=== PATIENT | female | born 1965 | race Caucasian/White ===

== ENCOUNTER 2016-06-10 16:24 | Observation (INO) | payer MEDICAID ==
[2016-06-10] MEDS ORDERED: ACETAMINOPHEN 325 MG TABLET PO PRN (17:43)
[2016-06-10] MEDS ORDERED: VANCOMYCIN HCL 0 MG in DEXTROSE 5%-WATER 250 ML IV NR (18:00)
--- NOTE | 2016-06-10 18:03 | PDOC H&P ---
History of Present Illness Admission Date/PCP: 06/10/16 16:24 TOM AGUIRRE DO Patient complains of: Redness and swelling of the abdominal wall. History of Present Illness: BRANDON GAGNON is a 50 year old female who presents with cellulitis of the anterior abdominal wall. Patient has a very complex past medical history for full details please see the discharge summary dated 11/06/2015 done by Erick BEAVERS. The patient today however presents with a four-day history of redness and swelling and erythema on her anterior wall. Patient has had problems with chronic cellulitis of her anterior abdominal wall and there is been some concern that this may be self-inflicted with foreign bodies present. The patient relates to me that over the last 4 days she's had worsening purulent drainage. She denies having any fevers or chills however. When asked about this she says that it's secondary to being infected with black mold that is working its way to from the inside of her to the surface. Patient reports that she has appointment on Monday of next week with a plastic surgeon at [facility] Dr. Mariam Slaughter for a procedure to remove the infected areas as well as to remove all of the mold from inside her skin. Patient denies having any fevers or chills. She denies any self-inflicted wounds. Patient denies any recent trauma but has had previous traumas to her abdominal wall that she states started all of this cycle. Past Medical History Cardiac Medical History: Reports: DVT Denies: Coronary Artery Disease, Hypertension Pulmonary Medical History: Denies: Asthma, Bronchitis, Chronic Obstructive Pulmonary Disease (COPD), Pneumonia Neurological Medical History: Reports: Seizures - childhood seizures GI Medical History: Reports: Gastroesophageal Reflux Disease Musculoskeltal Medical History: Reports: Arthritis Psychiatric Medical History: Reports: Post Traumatic Stress Disorder Denies: Depression Hematology: Denies: Anemia Infectious Medical History: Reports: Clostridium Difficile Past Surgical History Past Surgical History: Reports: Cholecystectomy, Hysterectomy, Orthopedic Surgery - Right knee left hip and back. Social History Information Source: Patient Lives with: Alone Smoking Status: Never Smoker Frequency of Alcohol Use: None Hx Recreational Drug Use: No Drugs: None Hx Prescription Drug Abuse: No - Advance Directive Resuscitation Status: the patient previously has been a DO NOT RESUSCITATE of the she's not certain at this time Family History Family History: Arthritis, CAD, CVA, DM, Hyperlipidemia, Hypertension, Malignancy, Thyroid Disfunction Parental Family History Reviewed: Yes Children Family History Reviewed: No Sibling(s) Family History Reviewed.: No Medication/Allergy Home Medications: Fentanyl [Duragesic 12 Mcg/Hr Transdermal Patch] 1 patch TD Q3DAYS 06/10/16 Gabapentin 500 mg PO Q12 06/10/16 Hydrocodone/Acetaminophen [Hydrocodon-Acetamin 7.5-325/15] 15 ml PO Q6 PRN 06/10 Allergies/Adverse Reactions: sulfamethoxazole [From Bactrim] Allergy (Severe, Verified 12/07/15 16:55) Respiratory distress trimethoprim [From Bactrim] Allergy (Severe, Verified 12/07/15 16:55) Respiratory distress clindamycin [Clindamycin] Allergy (Unknown, Verified 12/07/15 16:55) Respiratory distress doxycycline [Doxycycline] Allergy (Unknown, Verified 12/07/15 16:55) Respiratory distress Penicillins Allergy (Unknown, Verified 12/07/15 16:55) Respiratory distress Coconut * [Coconut] Allergy (Verified 12/07/15 16:55) Hives Review of Systems Constitutional: PRESENT: chills. ABSENT: fever(s), weakness, weight gain, weight loss Eyes: ABSENT: visual disturbances Ears: ABSENT: hearing changes Cardiovascular: ABSENT: chest pain, dyspnea on exertion, edema, orthropnea, palpitations Respiratory: ABSENT: cough, hemoptysis Gastrointestinal: ABSENT: abdominal pain, constipation, diarrhea, hematemesis, hematochezia, nausea, vomiting Musculoskeletal: ABSENT: joint swelling Integumentary: PRESENT: as per HPI Neurological: ABSENT: abnormal gait, abnormal speech, confusion, dizziness, focal weakness, syncope Psychiatric: PRESENT: other - History posttraumatic stress disorder Hematologic/Lymphatic: ABSENT: easy bleeding, easy bruising Physical Exam Vital Signs: Temp Pulse Resp BP Pulse Ox 99.7 F 101 H 148/79 H 96 06/10/16 16:54 06/10/16 16:54 06/10/16 16:54 06/10/16 16:54 General appearance: PRESENT: no acute distress Head exam: PRESENT: atraumatic, normocephalic Eye exam: PRESENT: conjunctiva pink, EOMI, PERRLA. ABSENT: scleral icterus Ear exam: PRESENT: normal external ear exam Mouth exam: PRESENT: moist, tongue midline Neck exam: ABSENT: carotid bruit, JVD, lymphadenopathy, thyromegaly Respiratory exam: PRESENT: clear to auscultation jojo. ABSENT: rales, rhonchi, wheezes Cardiovascular exam: PRESENT: RRR. ABSENT: diastolic murmur, rubs, systolic murmur GI/Abdominal exam: PRESENT: normal bowel sounds, soft. ABSENT: distended, guarding, mass, organolmegaly, rebound, tenderness Rectal exam: PRESENT: deferred Extremities exam: ABSENT: calf tenderness, clubbing, pedal edema Neurological exam: PRESENT: alert, awake, oriented to person, oriented to place , oriented to time, oriented to situation Psychiatric exam: PRESENT: appropriate affect Skin exam: PRESENT: other - Area of erythema and some shallow ulcers in the pannus on the anterior abdomen. No obvious purulent drainage the time of my exam. Assessment & Plan - Diagnosis (1) Abdominal wall cellulitis Is this a current diagnosis for this admission?: YesPlan: Patient has superficial cellulitis with some small shallow ulcers on her pannus. The patient reports to me that this is from black mold that is deep within her soft tissue and is migrating to the surface. The patient does not have any obvious fungal elements on exam. I suspect that this is just a simple cellulitis. There has been the past concerned that she may be self-limiting these wounds and all of her issues are addressed in detail on the discharge summary dated 11/06/2015 done by Erick Bauer [employer] PRODUCTION ASSISTANT. We will treat with vancomycin and check blood cultures. Patient reports that she has to get on a bus at 4 AM on Monday morning so she can go to [place] to see Dr. Mariam Slaughter of plastic surgery for surgical repair of these ulcers. The patient reportedly has chronic pain and is on a fentanyl patch which she has present on her body as well as hydrocodone. We will continue with her outpatient regiment pain medication but we will give no IV pain medications and we will give no higher doses than what she is routinely on. (2) History of DVT (deep vein thrombosis) Is this a current diagnosis for this admission?: YesPlan: She has a history of DVT in her left neck associated with a central line. This was greater than a year ago and she is not currently on anticoagulation. (3) DNR (do not resuscitate) Is this a current diagnosis for this admission?: YesPlan: The patient in the past has been a DO NOT RESUSCITATE. - Time Time Spent: 50 to 70 Minutes - Inpatient Certification Medical Necessity: Need for IV Antibiotics - Plan Summary Plan Summary: The patient has a complicated past medical history that has been addressed in detail on a discharge summary dated 11/06/2015 by Erick BEAVERS.
[2016-06-10] MEDS ORDERED: FENTANYL 12 MCG/HR PATCH.TD72 TD ONE (18:45)
[2016-06-10] MEDS: HYDROCOD/ACETAMIN 7.5-325 MG/15 ML ORAL SOLN UDCUP PO PRN (18:58)
[2016-06-10] MEDS ORDERED: HALOPERIDOL 5 MG TABLET PO PRN (19:07)
[2016-06-10 19:29] LABS: ANION GAP 13 (5-19); BLOOD UREA NITROGEN 9 mg/dL (7-20); CALCIUM 9.3 mg/dL (8.4-10.2); CARBON DIOXIDE 25 mmol/L (22-30); CHLORIDE 104 mmol/L (98-107); CREATININE RESULT 0.75 mg/dL (0.52-1.25); GLUCOSE 92 mg/dL (75-110); POTASSIUM 4.1 mmol/L (3.6-5.0); SODIUM 141.8 mmol/L (137-145)
[2016-06-10] MEDS ORDERED: GABAPENTIN 500 MG PO SCH (22:00)
[2016-06-10] MEDS: VANCOMYCIN HCL 2,000 MG in DEXTROSE 5%-WATER 500 ML IV SCH (22:54)
[2016-06-11] MEDS: HYDROCOD/ACETAMIN 7.5-325 MG/15 ML ORAL SOLN UDCUP PO PRN ×5 (00:36→23:01)
[2016-06-11] MEDS ORDERED: NORMAL SALINE 10 ML SDV (AFTER EACH USE) IV PRN (02:18)
[2016-06-11 07:41] LABS: ABSOLUTE BASOPHILS # (AUTO) 0.2 10^3/uL (0.0-0.2); ABSOLUTE EOSINOPHILS # (AUTO) 0.3 10^3/uL (0.0-0.6); ABSOLUTE LYMPHOCYTES (AUTO) 2.2 10^3/uL (0.5-4.7); ABSOLUTE MONOCYTES (AUTO) 0.7 10^3/uL (0.1-1.4); ABSOLUTE NEUT (AUTO) 5.6 10^3/uL (1.7-8.2); BASOPHILS % (AUTO) 1.7 % (0-2); EOSINOPHILS % (AUTO) 2.9 % (0-6); HEMATOCRIT 38.8 % (36.0-47.0); HEMOGLOBIN 12.9 g/dL (12.0-15.5); HGB HCT DIFFERENCE -0.1; MEAN CORPUSCULAR HGB CONC 33.1 g/dL (32.0-36.0); MEAN CORPUSCULAR VOLUME 82 fl (80-97); MONOCYTES % (AUTO) 8.2 % (3-13); RED BLOOD COUNT 4.76 10^6/uL (3.72-5.28); SEGMENTED NEUTROPHILS % (AUTO) 62.2 % (42-78)
[2016-06-11] MEDS: VANCOMYCIN HCL 2,000 MG in DEXTROSE 5%-WATER 500 ML IV SCH ×2 (09:48→21:05)
[2016-06-11] MEDS: NORMAL SALINE 10 ML SDV (SCHEDULED) IV SCH ×2 (12:39→21:06)
--- NOTE | 2016-06-11 16:15 | PDOC DISCHARGE SUMMARY ---
General - Admit/Disc Date/PCP Admission Date/Primary Care Provider: 06/10/16 16:24 OTM AGUIRRE, DO Discharge Date: 06/11/16 - Discharge Diagnosis (1) Abdominal wall cellulitis Is this a current diagnosis for this admission?: YesSummary: Patient was treated with vancomycin. She is discharged this evening because she reports she has to leave at 5 in the morning and report to [facility] for admission for planned procedure of repair of pannus by Dr. Mariam Slaughter of plastic surgery. The patient is aware that she needs to continue with IV vancomycin and she reports that his will be done at [facility]. (2) History of DVT (deep vein thrombosis) Is this a current diagnosis for this admission?: YesSummary: This has been greater than a year and she is not on anticoagulation at this time (3) DNR (do not resuscitate) Is this a current diagnosis for this admission?: Yes - Additional Information Resuscitation Status: the patient previously has been a DO NOT RESUSCITATE of the she's not certain at this time Discharge Diet: Regular Discharge Activity: Activity As Tolerated Home Medications: Fentanyl [Duragesic 12 Mcg/Hr Transdermal Patch] 1 patch TD Q3DAYS 06/10/16 Gabapentin 500 mg PO Q12 06/10/16 Hydrocodone/Acetaminophen [Hydrocodon-Acetamin 7.5-325/15] 15 ml PO Q6 PRN 06/10 History of Present Illness History of Present Illness: BRANDON GAGNON is a 50 year old female who presents with cellulitis of the anterior abdominal wall. Patient has a very complex past medical history for full details please see the discharge summary dated 11/06/2015 done by Erick BEAVERS. The patient today however presents with a four-day history of redness and swelling and erythema on her anterior wall. Patient has had problems with chronic cellulitis of her anterior abdominal wall and there is been some concern that this may be self-inflicted with foreign bodies present. The patient relates to me that over the last 4 days she's had worsening purulent drainage. She denies having any fevers or chills however. When asked about this she says that it's secondary to being infected with black mold that is working its way to from the inside of her to the surface. Patient reports that she has appointment on Monday of next week with a plastic surgeon at [facility] Dr. Mariam Slaughter for a procedure to remove the infected areas as well as to remove all of the mold from inside her skin. Patient denies having any fevers or chills. She denies any self-inflicted wounds. Patient denies any recent trauma but has had previous traumas to her abdominal wall that she states started all of this cycle. 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 Please see the discharge summary dictated by Erick Bauer dated 11/06/2015 for details regarding that. The patient presented with erythema of her abdominal wall as well as some shallow ulcers. Patient was started on vancomycin IV as she reports that she is allergic to any possible oral antibiotic that might treat this. The patient reports that she has to leave at 5 AM on 06/12/2016 to go to [facility]. Because of this she is discharged tonight and will follow-up tomorrow with Dr. Mariam Slaughter. She reports that she is to be admitted to the plastic surgery service Dr. Mariam Slaughter Monday morning. Patient's other medical problems remained stable during this hospitalization. Physical Exam Vital Signs: Temp Pulse Resp BP Pulse Ox 98.2 F 70 18 153/69 H 100 06/11/16 15:37 06/11/16 15:37 06/11/16 15:37 06/11/16 15:37 06/11/16 15:37 Intake & Output 06/10/16 06/11/16 06/12/16 06:59 06:59 06:59 Intake Total 480 Balance 480 Weight 127 kg 127 kg General appearance: PRESENT: no acute distress Eye exam: PRESENT: conjunctiva pink. ABSENT: scleral icterus Mouth exam: PRESENT: moist, tongue midline Neck exam: ABSENT: JVD Respiratory exam: PRESENT: clear to auscultation jojo. ABSENT: rales, rhonchi, wheezes Cardiovascular exam: PRESENT: RRR. ABSENT: diastolic murmur, rubs, systolic murmur GI/Abdominal exam: PRESENT: normal bowel sounds, soft. ABSENT: distended, guarding, mass, organolmegaly, rebound, tenderness Neurological exam: PRESENT: alert, awake, oriented to person, oriented to place , oriented to time, oriented to situation Psychiatric exam: PRESENT: appropriate affect Skin exam: PRESENT: other - Erythema on the anterior abdominal wall pannus. There is also several small areas of ulceration. Results Laboratory Results: 06/11/16 06:25 06/10/16 18:35 06/10/16 06/11/16 18:35 06:25 WBC 9.0 RBC 4.76 Hgb 12.9 Hct 38.8 MCV 82 MCH 27.0 MCHC 33.1 RDW 15.0 H Plt Count 164 Seg Neutrophils % 62.2 Lymphocytes % 25.0 Monocytes % 8.2 Eosinophils % 2.9 Basophils % 1.7 Absolute Neutrophils 5.6 Absolute Lymphocytes 2.2 Absolute Monocytes 0.7 Absolute Eosinophils 0.3 Absolute Basophils 0.2 Sodium 141.8 Potassium 4.1 Chloride 104 Carbon Dioxide 25 Anion Gap 13 BUN 9 Creatinine 0.75 Est GFR ( Amer) > 60 Est GFR (Non-Af Amer) > 60 Glucose 92 Calcium 9.3 Qualifiers PATEINT BEING DISCHARGED WITH ANY OF THE FOLLOWING DIAGNOSIS?: No Plan Discharge Plan: Patient is discharged after her evening dose of vancomycin today and she is going to [facility] school medicine tomorrow morning early. Time Spent: Less than 30 Minutes
[2016-06-11 22:02] VITALS: BP 123/79
[2016-06-13] MEDS ORDERED: FENTANYL 12 MCG/HR PATCH.TD72 TD SCH (10:00)
== END 2016-06-11 23:55 | disposition home or self-care (01) ==
LOC: 2N 16:24 → INTOOBSV 16:24
PROVIDERS: ADMIT Family Medicine; ATTEND Family Medicine
DX: L03.311 Cellulitis of abdominal wall (principal); Z66 Do not resuscitate; Z86.718 Personal history of other venous thrombosis and embolism
CPT/HCPCS: 36415 ×2; 87040; 85025; 80048; J3490 ×2; J7060 ×2; J3370 ×2; J1642; G0378; G0379

== ENCOUNTER → 2016-07-20 | Outpatient (CLI) | payer MEDICAID, MEDICARE ==
[2016-07-20 15:34] LABS: ABSOLUTE BASOPHILS # (AUTO) 0.1 10^3/uL (0.0-0.2); ABSOLUTE EOSINOPHILS # (AUTO) 0.1 10^3/uL (0.0-0.6); ABSOLUTE LYMPHOCYTES (AUTO) 1.6 10^3/uL (0.5-4.7); ABSOLUTE MONOCYTES (AUTO) 0.6 10^3/uL (0.1-1.4); ABSOLUTE NEUT (AUTO) 4.8 10^3/uL (1.7-8.2); BASOPHILS % (AUTO) 1.2 % (0-2); EOSINOPHILS % (AUTO) 1.9 % (0-6); HEMATOCRIT 39.5 % (36.0-47.0); HEMOGLOBIN 13.2 g/dL (12.0-15.5); HGB HCT DIFFERENCE 0.1; LYMPHOCYTES % (AUTO) 22.4 % (13-45); MEAN CORPUSCULAR HEMOGLOBIN 27.3 pg (27.0-33.4); MEAN CORPUSCULAR HGB CONC 33.4 g/dL (32.0-36.0); MEAN CORPUSCULAR VOLUME 82 fl (80-97); MONOCYTES % (AUTO) 8.7 % (3-13); RED BLOOD COUNT 4.84 10^6/uL (3.72-5.28); RED CELL DISTRIBUTION WIDTH 14.9 % (11.5-14.0); SEGMENTED NEUTROPHILS % (AUTO) 65.8 % (42-78); WHITE BLOOD COUNT 7.3 10^3/uL (4.0-10.5)
[2016-07-20 16:10] LABS: ERYTHROCYTE SEDIMENTATION RATE 26 mm/hr (0-20)
[2016-07-20 16:13] LABS: ALANINE AMINOTRANSFERASE 36 U/L (9-52); ALBUMIN 4.2 g/dL (3.5-5.0); ALKALINE PHOSPHATASE 107 U/L (38-126); ANION GAP 10 (5-19); ASPARTATE AMINO TRANSFERASE 28 U/L (14-36); BILIRUBIN,DIRECT 0.3 mg/dL (0.0-0.4); BILIRUBIN,TOTAL 1.2 mg/dL (0.2-1.3); BLOOD UREA NITROGEN 14 mg/dL (7-20); C-REACTIVE PROTEIN 21.6 mg/L (<10.0); CALCIUM 9.6 mg/dL (8.4-10.2); CARBON DIOXIDE 28 mmol/L (22-30); CHLORIDE 107 mmol/L (98-107); CREATINE KINASE 77 U/L (30-135); CREATININE RESULT 0.68 mg/dL (0.52-1.25); GLUCOSE 96 mg/dL (75-110); POTASSIUM 4.3 mmol/L (3.6-5.0); SODIUM 145.1 mmol/L (137-145); TOTAL PROTEIN 7.6 g/dL (6.3-8.2)
== END ==
LOC: LAB 14:47
PROVIDERS: ATTEND Family Medicine
DX: L02.211 Cutaneous abscess of abdominal wall (principal); R60.0 Localized edema
CPT/HCPCS: 36415; 80053; 82550; 84443; 85025; 85652; 86140

== ENCOUNTER 2016-09-03 21:03 | Emergency (ER) | payer MEDICAID ==
[2016-09-03] MEDS ORDERED: VANCOMYCIN HCL INJ 1000 MG VIAL IV ONE (22:06)
--- NOTE | 2016-09-03 22:10 | ER Document Report ---
ED General - General Chief Complaint: Wound Infection Stated Complaint: POST OP CONCERNS Time Seen by Provider: 09/03/16 21:58 Notes: Patient is a 50-year-old female who comes emergency department for chief complaint of wound infection to the abdominal wall over the lower aspect of the abdomen, patient states that on August 10 she had abdominal wall surgery by Dr. Slaughter for necrotizing fasciitis, she states that she was told to come to emergency department if she worsens, she states that there has been increasing redness, discomfort and now drainage over the past 5 days, she states that she has begun running low-grade fevers as well. Patient denies history of diabetes , she has a history of multiple episodes of abdominal wall cellulitis in the past. TRAVEL OUTSIDE OF THE [place] IN LAST 30 DAYS: No - Related Data Allergies/Adverse Reactions: sulfamethoxazole [From Bactrim] Allergy (Severe, Verified 12/07/15 16:55) Respiratory distress trimethoprim [From Bactrim] Allergy (Severe, Verified 12/07/15 16:55) Respiratory distress clindamycin [Clindamycin] Allergy (Unknown, Verified 12/07/15 16:55) Respiratory distress doxycycline [Doxycycline] Allergy (Unknown, Verified 12/07/15 16:55) Respiratory distress Penicillins Allergy (Unknown, Verified 12/07/15 16:55) Respiratory distress Coconut * [Coconut] Allergy (Verified 12/07/15 16:55) Hives Past Medical History - General Information source: Patient - Social History Smoking Status: Former Smoker Drug Abuse: None Lives with: Family Family History: Arthritis, CAD, CVA, DM, Hyperlipidemia, Hypertension, Malignancy, Thyroid Disfunction - Past Medical History Cardiac Medical History: Reports: Hx DVT Denies: Hx Coronary Artery Disease, Hx Hypertension Pulmonary Medical History: Denies: Hx Asthma, Hx Bronchitis, Hx COPD, Hx Pneumonia Neurological Medical History: Reports: Hx Seizures - childhood seizures. Denies : Hx Cerebrovascular Accident Renal/ Medical History: Denies: Hx Peritoneal Dialysis GI Medical History: Reports: Hx Gastritis, Hx Gastroesophageal Reflux Disease, Hx Ulcer, Hx Colonoscopy, Hx Endoscopy Musculoskeltal Medical History: Reports Hx Arthritis, Reports Hx Musculoskeletal Deformity, Reports Hx Musculoskeletal Trauma Skin Medical History: Reports Hx Cellulitis, Reports Hx MRSA Psychiatric Medical History: Reports: Hx Post Traumatic Stress Disorder Denies: Hx Depression Traumatic Medical History: Reports: Hx Fractures, Hx Spine Fracture Infectious Medical History: Reports: Hx C-Diff Past Surgical History: Reports: Hx Abdominal Surgery, Hx Cholecystectomy, Hx Hysterectomy, Hx Orthopedic Surgery - Right knee left hip and back. - Immunizations Immunizations up to date: Yes Hx Diphtheria, Pertussis, Tetanus Vaccination: Yes Review of Systems - Review of Systems Constitutional: No symptoms reported EENT: No symptoms reported Cardiovascular: No symptoms reported Respiratory: No symptoms reported Gastrointestinal: See HPI Genitourinary: No symptoms reported Female Genitourinary: No symptoms reported Musculoskeletal: No symptoms reported Skin: See HPI Hematologic/Lymphatic: No symptoms reported Neurological/Psychological: No symptoms reported Physical Exam - Vital signs Vitals: Temp Pulse Resp BP Pulse Ox 99.5 F 97 20 142/86 H 100 09/03/16 21:18 09/03/16 21:18 09/03/16 21:18 09/03/16 21:18 09/03/16 21:18 Interpretation: Normal - General General appearance: Appears well In distress: None - HEENT Head: Normocephalic, Atraumatic Eyes: Normal Pupils: PERRL - Respiratory Respiratory status: No respiratory distress Chest status: Nontender Breath sounds: Normal. No: Decreased air movement Chest palpation: Normal - Cardiovascular Rhythm: Regular. No: Tachycardia Heart sounds: Normal auscultation, S1 appreciated, S2 appreciated Murmur: No - Abdominal Inspection: Other - lower abdominal wall with postoperative appearance along the edge of the pannus, has 3 separate draining open areas which appear to have not remained closed after the operation, purulent drainage noted, foul smell, surrounding erythema consistent with cellulitis. Remaining abdominal exam is unremarkable Distension: No distension Bowel sounds: Normal Tenderness: Nontender Organomegaly: No organomegaly - Back Back: Normal, Nontender. No: Tender - Extremities General upper extremity: Normal inspection, Nontender, Normal color, Normal ROM , Normal temperature General lower extremity: Normal inspection, Nontender, Normal color, Normal ROM , Normal temperature, Normal weight bearing. 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 Abdominal wall with postoperative appearance, has 3 separate draining open areas which appear to have not remained closed after the operation, purulent drainage noted, foul smell, surrounding erythema consistent with cellulitis. CBC, chemistry unremarkable. Vancomycin begun, patient is allergic to a variety of antibiotics. Patient was discussed with Dr. Brush. Called and spoke with Dr. Slaughter, patient's surgeon, she recommends patient be transferred to their facility for additional management of abdominal wall infection/cellulitis. She states that patient was supposed to be on an antibiotic at home although patient states she is not taking anything. Patient does state that she was supposed to have vancomycin and home health arranged by her PCP but this never happened. Discussed with patient, patient is in agreement with transfer plan. - Vital Signs Vital signs: Temp Pulse Resp BP Pulse Ox 98.9 F 97 20 142/86 H 100 09/04/16 01:22 09/03/16 21:18 09/03/16 21:18 09/03/16 21:18 09/03/16 21:18 - Laboratory Result Diagrams: 09/04/16 00:10 09/04/16 00:10 Laboratory results interpreted by me: 09/04/16 00:10 Hgb 11.0 L Hct 34.1 L MCH 26.3 L RDW 14.7 H Discharge - Discharge Clinical Impression: Cellulitis of abdominal wall Open abdominal wall wound Qualifiers: Encounter type: initial encounter Qualified Code(s): S31.109A - Unspecified open wound of abdominal wall, unspecified quadrant without penetration into peritoneal cavity, initial encounter Condition: Stable Disposition: [facility]
[2016-09-04] MEDS ORDERED: MORPHINE SULFATE 10 MG/ML INJ IV ONE ×5 (00:30→22:50)
[2016-09-04] MEDS ORDERED: ONDANSETRON HCL INJ/PF 4 MG/2 ML SDV IV ONE ×2 (00:30→05:50)
[2016-09-04 00:40] LABS: ABSOLUTE BASOPHILS # (AUTO) 0.1 10^3/uL (0.0-0.2); ABSOLUTE EOSINOPHILS # (AUTO) 0.2 10^3/uL (0.0-0.6); ABSOLUTE LYMPHOCYTES (AUTO) 1.6 10^3/uL (0.5-4.7); ABSOLUTE MONOCYTES (AUTO) 0.8 10^3/uL (0.1-1.4); ABSOLUTE NEUT (AUTO) 7.5 10^3/uL (1.7-8.2); BASOPHILS % (AUTO) 0.7 % (0-2); EOSINOPHILS % (AUTO) 1.5 % (0-6); HEMATOCRIT 34.1 % (36.0-47.0); HGB HCT DIFFERENCE -1.1; LYMPHOCYTES % (AUTO) 15.6 % (13-45); MEAN CORPUSCULAR HEMOGLOBIN 26.3 pg (27.0-33.4); MEAN CORPUSCULAR HGB CONC 32.3 g/dL (32.0-36.0); MEAN CORPUSCULAR VOLUME 82 fl (80-97); MONOCYTES % (AUTO) 8.2 % (3-13); RED BLOOD COUNT 4.19 10^6/uL (3.72-5.28); RED CELL DISTRIBUTION WIDTH 14.7 % (11.5-14.0); WHITE BLOOD COUNT 10.2 10^3/uL (4.0-10.5)
[2016-09-04 01:00] LABS: ALANINE AMINOTRANSFERASE 30 U/L (9-52); ALBUMIN 3.5 g/dL (3.5-5.0); ALKALINE PHOSPHATASE 103 U/L (38-126); ANION GAP 13 (5-19); ASPARTATE AMINO TRANSFERASE 21 U/L (14-36); BILIRUBIN,DIRECT 0.3 mg/dL (0.0-0.4); BILIRUBIN,TOTAL 1.1 mg/dL (0.2-1.3); BLOOD UREA NITROGEN 8 mg/dL (7-20); CALCIUM 9.2 mg/dL (8.4-10.2); CARBON DIOXIDE 25 mmol/L (22-30); CHLORIDE 103 mmol/L (98-107); CREATININE RESULT 0.74 mg/dL (0.52-1.25); GLUCOSE 106 mg/dL (75-110); POTASSIUM 4.4 mmol/L (3.6-5.0); SODIUM 140.7 mmol/L (137-145); TOTAL PROTEIN 6.9 g/dL (6.3-8.2)
[2016-09-04] MEDS: VANCOMYCIN HCL INJ 1000 MG VIAL IV SCH ×2 (09:44→23:02)
[2016-09-04] MEDS ORDERED: RINGERS SOLUTION 1,000 ML IV PRN (12:30)
[2016-09-04] MEDS: RINGERS SOLUTION,LACTATED 1,000 ML IV PRN (14:00)
[2016-09-05 03:36] LABS: ABSOLUTE BASOPHILS # (AUTO) 0.1 10^3/uL (0.0-0.2); ABSOLUTE EOSINOPHILS # (AUTO) 0.4 10^3/uL (0.0-0.6); ABSOLUTE LYMPHOCYTES (AUTO) 1.4 10^3/uL (0.5-4.7); ABSOLUTE MONOCYTES (AUTO) 0.7 10^3/uL (0.1-1.4); ABSOLUTE NEUT (AUTO) 4.7 10^3/uL (1.7-8.2); BASOPHILS % (AUTO) 1.4 % (0-2); EOSINOPHILS % (AUTO) 5.9 % (0-6); HEMATOCRIT 32.5 % (36.0-47.0); HEMOGLOBIN 10.4 g/dL (12.0-15.5); HGB HCT DIFFERENCE -1.3; LYMPHOCYTES % (AUTO) 19.3 % (13-45); MEAN CORPUSCULAR HEMOGLOBIN 26.3 pg (27.0-33.4); MEAN CORPUSCULAR HGB CONC 32.1 g/dL (32.0-36.0); MEAN CORPUSCULAR VOLUME 82 fl (80-97); RED BLOOD COUNT 3.98 10^6/uL (3.72-5.28); RED CELL DISTRIBUTION WIDTH 14.6 % (11.5-14.0); SEGMENTED NEUTROPHILS % (AUTO) 63.4 % (42-78); WHITE BLOOD COUNT 7.4 10^3/uL (4.0-10.5)
[2016-09-05] MEDS ORDERED: DOCUSATE SODIUM 100 MG CAPSULE PO ONE (03:41)
[2016-09-05 03:51] LABS: ANION GAP 7 (5-19); BLOOD UREA NITROGEN 11 mg/dL (7-20); CALCIUM 8.8 mg/dL (8.4-10.2); CARBON DIOXIDE 27 mmol/L (22-30); CHLORIDE 104 mmol/L (98-107); CREATININE RESULT 0.77 mg/dL (0.52-1.25); GLUCOSE 106 mg/dL (75-110); POTASSIUM 4.6 mmol/L (3.6-5.0); SODIUM 137.8 mmol/L (137-145)
[2016-09-05] MEDS: MORPHINE SULFATE 10 MG/ML INJ IV PRN ×3 (04:44→13:25)
[2016-09-05] MEDS: RINGERS SOLUTION,LACTATED 1,000 ML IV PRN (09:22)
[2016-09-05] MEDS: VANCOMYCIN HCL INJ 1000 MG VIAL IV SCH (10:59)
[2016-09-05] MEDS ORDERED: ONDANSETRON HCL INJ/PF 4 MG/2 ML SDV IV ONE (16:46)
[2016-09-05 19:59] VITALS: BP 146/102
== END 2016-09-05 17:30 | disposition short-term general hospital (02) ==
LOC: ER 21:03
DX: T81.4XXA Infection following a procedure, initial encounter (principal); L03.311 Cellulitis of abdominal wall; R10.30 Lower abdominal pain, unspecified; K21.9 Gastro-esophageal reflux disease without esophagitis; F43.10 Post-traumatic stress disorder, unspecified; Z86.718 Personal history of other venous thrombosis and embolism; Z90.49 Acquired absence of other specified parts of digestive tract; Z90.710 Acquired absence of both cervix and uterus; Z87.891 Personal history of nicotine dependence; Z88.1 Allergy status to other antibiotic agents; Z88.0 Allergy status to penicillin; Z88.3 Allergy status to other anti-infective agents
CPT/HCPCS: 36591; 96376; 99284; 96361; 96375; 96365; 96366; 36415; 87040; 87070; 87205; 85025; 87075; 87077; 80048; 80053; 87186; J3490; J2270 ×2; J2405; J7120 ×2; J3370 ×2

== ENCOUNTER 2018-12-05 19:59 | Emergency (ER) | payer SELFPAY ==
[2018-12-05 20:06] VITALS: BP 144/99
[2018-12-05] MEDS ORDERED: ACETAMINOPHEN 325 MG TABLET PO ONE (22:24)
--- NOTE | 2018-12-05 23:15 | RADIOLOGY REPORT (SQ) ---
EXAM DESCRIPTION: Right tibia/fibula RadLex: XR TIBIA FIBULA 2 VIEWS Views: 2 CLINICAL HISTORY: 53 years Female, trauma COMPARISON: None. FINDINGS: Negative for acute fracture, dislocation, or radiopaque foreign body. IMPRESSION: 1. No acute findings.
--- NOTE | 2018-12-05 23:18 | RADIOLOGY REPORT (SQ) ---
EXAM DESCRIPTION: RadLex: XR RIBS UNILATERAL WITH CHEST Views: 3, AP chest and 2 views of right ribs CLINICAL HISTORY: 53 years Female, trauma COMPARISON: 12/07/2015 FINDINGS: Chest single view: Lungs are clear, with no focal infiltrate, pneumothorax, or pleural effusion. Mediastinum is within normal limits for this positioning. Ribs: Bilateral pleural thickening is similar to the prior exam. There is no evidence for acute subpleural hemorrhage. No acute right rib fractures. No suspicious lytic or blastic rib lesion. Right upper quadrant surgical clips are noted. IMPRESSION: 1. No acute findings.
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
== END 2018-12-06 | disposition home or self-care (01) ==
LOC: ER 19:59
DX: R07.81 Pleurodynia (principal); M79.604 Pain in right leg; E66.01 Morbid (severe) obesity due to excess calories; Z68.43 Body mass index [BMI] 50.0-59.9, adult; W22.8XXA Striking against or struck by other objects, initial encounter
CPT/HCPCS: 99283

== ENCOUNTER 2018-12-17 03:10 | Emergency (ER) | payer MEDICAID ==
[2018-12-17 03:19] VITALS: BP 130/92
[2018-12-17] MEDS ORDERED: ACETAMINOPHEN 325 MG TABLET PO ONE (05:22)
[2018-12-17] MEDS ORDERED: OXYCODONE HCL IR 5 MG TABLET PO ONE (05:52)
--- NOTE | 2018-12-17 05:53 | ER Document Report ---
HPI - HPI Time Seen by Provider: 12/17/18 05:45 Pain Level: 3 Context: Patient is a 53-year-old female that comes to the emergency department for chief complaint of injury to the left knee. She states she was trying to get over a fallen tree when she accidentally over flex her knee and rotated inward at the same time causing sharp pain. She states now it hurts to walk on it and she has some swelling over the knee and behind the knee. She states she had arthroscopy earlier this year with repair of the meniscus. She denies any other injuries or any other complaints. - REPRODUCTIVE Reproductive: DENIES: : - MUSCULOSKELETAL Musculoskeletal: REPORTS: Extremity pain - left knee Past Medical History - General Information source: Patient - Social History Smoking Status: Never Smoker Frequency of alcohol use: None Drug Abuse: None Lives with: Family Family History: Arthritis, CAD, CVA, DM, Hyperlipidemia, Hypertension, Malignancy, Thyroid Disfunction Patient has suicidal ideation: No Patient has homicidal ideation: No - Past Medical History Cardiac Medical History: Reports: Hx DVT Denies: Hx Coronary Artery Disease, Hx Hypertension Pulmonary Medical History: Denies: Hx Asthma, Hx Bronchitis, Hx COPD, Hx Pneumonia Neurological Medical History: Reports: 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, Hx Seizures - childhood seizures Renal/ Medical History: Denies: Hx Peritoneal Dialysis Malignancy Medical History: Reports: Hx Colorectal Cancer, Hx Liver Cancer, Hx Lung Cancer GI Medical History: Reports: Hx Gastritis, Hx Gastroesophageal Reflux Disease, Hx Ulcer, Hx Colonoscopy, Hx Endoscopy Musculoskeletal Medical History: Reports Hx Arthritis - Rheumatoid arthritis, Reports Hx Musculoskeletal Deformity, Reports Hx Musculoskeletal Trauma Skin Medical History: Reports Hx Cellulitis, Reports Hx MRSA Psychiatric Medical History: Reports: Hx Post Traumatic Stress Disorder Denies: Hx Depression Traumatic Medical History: Reports: Hx Fractures - Right arms both ankles lumbar and left hip fracture, Hx Spine Fracture Infectious Medical History: Reports: Hx C-Diff Past Surgical History: Reports: Hx Abdominal Surgery, Hx Cholecystectomy, Hx Hysterectomy, Hx Orthopedic Surgery - Right knee left hip and back. Repair of bulging disc - Immunizations Immunizations up to date: Yes Hx Diphtheria, Pertussis, Tetanus Vaccination: Yes Vertical Provider Document - CONSTITUTIONAL General Appearance: WD/WN, No Apparent Distress, Obese - INFECTION CONTROL TRAVEL OUTSIDE OF THE [place] IN LAST 30 DAYS: No - HEENT HEENT: Atraumatic, Normocephalic - NECK Neck: Normal Inspection - RESPIRATORY Respiratory: Breath Sounds Normal, No Respiratory Distress - CARDIOVASCULAR Cardiovascular: Regular Rate, Regular Rhythm - GI/ABDOMEN Gastrointestinal: Abdomen Soft, Abdomen Non-Tender - BACK Back: Normal Inspection - MUSCULOSKELETAL/EXTREMETIES Musculoskeletal/Extremeties: MAEW, FROM, Tender - Tender with palpation over the general area of the left knee, pain with range of motion but range of motion is intact. Some grinding with rotation. Normal ankle, distal neurovascular exam, normal hip exam. Unremarkable extremities otherwise. - NEURO Level of Consciousness: Awake, Alert, Appropriate Motor/Sensory: No Motor Deficit, No Sensory Deficit - DERM Integumentary: Warm, Dry, No Rash Course - Vital Signs Vital signs: Temp Pulse Resp BP Pulse Ox 98.4 F 94 17 130/92 H 97 12/17/18 03:17 12/17/18 03:17 12/17/18 03:17 12/17/18 03:12/17/18 03:17 - Diagnostic Test Radiology reviewed: Image reviewed, Reports reviewed Procedures - Immobilization Left leg/knee Pre-Proc Neuro Vasc Exam: Normal Immobilizer type: Knee immobilizer Performed by: PCT Post-Proc Neuro Vasc Exam: Normal Alignment checked and good: Yes Discharge - Discharge Clinical Impression: Left knee injury Qualifiers: Encounter type: initial encounter Qualified Code(s): S89.92XA - Unspecified injury of left lower leg, initial encounter Condition: Stable Disposition: HOME, SELF-CARE Additional Instructions: The x-ray of the knee does not show any fracture, dislocation, fluid in the joint, or obvious concerning finding. Based on her exam I suspect there is an underlying injury of the internal knee, probably meniscus injury. This might heal on its own, I recommend elevating, icing 3-4 times a day for 10 to 15 minutes, and use the knee immobilizer and crutches for the first few days. Resume normal activity if symptoms resolve. If symptoms continue follow-up with the orthopedics referral. Return for any concerning symptoms including severe swelling or pain. Referrals: TOM AGUIRRE DO [Primary Care Provider] - Follow up as needed
--- NOTE | 2018-12-17 06:06 | RADIOLOGY REPORT (SQ) ---
EXAM: X-ray knee four or more views CLINICAL DATA: 53-year-old female with pain status post fall TECHNICAL DATA: Four x-ray views of the left knee were performed on 12/17/2018 at 5:39 AM. COMPARISONS: None FINDINGS: There is no evidence of fracture or dislocation. There is no significant arthritis or degenerative change. No focal lytic or sclerotic bone lesions are seen. Bone mineralization is normal. No focal soft tissue abnormalities are identified. IMPRESSION: No evidence of acute osseous injury involving the left knee.
== END 2018-12-17 07:03 | disposition home or self-care (01) ==
LOC: ER 03:10
DX: S89.92XA Unspecified injury of left lower leg, initial encounter (principal); X50.0XXA Overexertion from strenuous movement or load, initial encounter; Z86.718 Personal history of other venous thrombosis and embolism; I69.951 Hemiplegia and hemiparesis following unspecified cerebrovascular disease affecting right dominant side; Z85.05 Personal history of malignant neoplasm of liver; Z85.118 Personal history of other malignant neoplasm of bronchus and lung; Z85.038 Personal history of other malignant neoplasm of large intestine; Z86.14 Personal history of Methicillin resistant Staphylococcus aureus infection; Z90.49 Acquired absence of other specified parts of digestive tract; Z90.710 Acquired absence of both cervix and uterus
CPT/HCPCS: 99283; 73564; L1830

== ENCOUNTER 2018-12-20 23:56 | Emergency (ER) | payer SELFPAY ==
[2018-12-21 00:03] VITALS: BP 144/104
== END 2018-12-21 00:08 | disposition left against medical advice (07) ==
LOC: ER 23:56
DX: Z53.21 Procedure and treatment not carried out due to patient leaving prior to being seen by health care provider (principal)

== ENCOUNTER 2018-12-27 03:55 | Emergency (ER) | payer MEDICAID ==
--- NOTE | 2018-12-27 05:09 | RADIOLOGY REPORT (SQ) ---
EXAM DESCRIPTION: XR CHEST 2 VIEWS COMPLETED DATE/TME: 12/27/2018 00:00 CLINICAL HISTORY: cough COMPARISON: 12/05/2018 FINDINGS: Frontal and lateral views of the chest. Cardiomediastinal silhouette: Normal size and contour. Lungs: No consolidation, pneumothorax, or pleural effusion. Bones: No acute osseous abnormality. Upper abdomen: Prior cholecystectomy. IMPRESSION: 1. No acute pulmonary process identified.
--- NOTE | 2018-12-27 05:32 | ER Document Report ---
HPI - HPI Patient complains to provider of: vomiting, medication intolerance, cough Time Seen by Provider: 12/27/18 05:28 Onset: Other - 2 wks Onset/Duration: Gradual, Constant, Worse Severity: Moderate Pain Level: 3 Context: 53 yr old female pt, with the listed pmh, to include history of lung cancer, history of current thyroid and throat cancer, stomach cancer, with no recent chemoradiation awaiting thyroid biopsy for primary to guide treatment plan, here for worsening cough x2 weeks. She states she coughs so much that she makes herself vomit. She denies any blood in the emesis. She states she feels a little short of breath secondary to her coughing spells. No chest pain. History of this before a few months ago when she states she was admitted in [place] for this. She is not on any amino suppressive medications. PCP is mikki. Patient states she was recently diagnosed with Lyme disease in [place] and started on amoxicillin and azithromycin for this 4 days ago as she has many antibiotic allergies and can only take a few things. She states she is anaphylactic to doxycycline. She states she gets hives and vomits with penicillin however she can take amoxicillin and azithromycin but it makes her vomit. She states she started vomiting after taking the medications for 4 days now. She has had low-grade fevers. She has not followed up with her primary care doctor. She denies smoking. No rash. she states she removed two engorged ticks off her bilat breasts about a week ago which prompted the lyme testing. No other recent abx or steroids. no hx of diabetes or asthma. no trouble breathing, swallowing or handling secretions. otc meds not helping much. hasn't otherwise sought help until now. no other associated sx. Associated Symptoms: Chills, Productive cough, Fever, Hurts to breath, Vomiting Exacerbated by: Coughing Relieved by: Remaining still Similar symptoms previously: Yes Recently seen / treated by doctor: Yes - ROS Systems Reviewed and Negative: Yes All other systems reviewed and negative - To include 10 systems, unless mentioned in the hpi. - REPRODUCTIVE Reproductive: DENIES: : - DERM Skin Color: Erythema, Jaundiced, Ecchymosis Past Medical History - General Information source: Patient, Relative - Son and daughter - Social History Smoking Status: Never Smoker Frequency of alcohol use: None Drug Abuse: None Lives with: Family Family History: Arthritis, CAD, CVA, DM, Hyperlipidemia, Hypertension, Malignancy, Thyroid Disfunction Patient has suicidal ideation: No Patient has homicidal ideation: No - Past Medical History Cardiac Medical History: Reports: Hx DVT Denies: Hx Atrial Fibrillation, Hx Congestive Heart Failure, Hx Coronary Artery Disease, Hx Hypertension Pulmonary Medical History: Denies: Hx Asthma, Hx Bronchitis, Hx COPD, Hx Pneumonia Neurological Medical History: Reports: 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, Hx Seizures - childhood seizures Endocrine Medical History: Denies: Hx Diabetes Mellitus Type 1, Hx Diabetes Mellitus Type 2 Renal/ Medical History: Denies: Hx Kidney Stones, Hx Peritoneal Dialysis Malignancy Medical History: Reports: Hx Breast Cancer, Hx Colorectal Cancer, Hx Liver Cancer, Hx Lung Cancer GI Medical History: Reports: Hx Gastritis, Hx Gastroesophageal Reflux Disease, Hx Ulcer, Hx Colonoscopy, Hx Endoscopy Musculoskeletal Medical History: Reports Hx Arthritis - Rheumatoid arthritis, Reports Hx Musculoskeletal Deformity, Reports Hx Musculoskeletal Trauma Skin Medical History: Reports Hx Cellulitis, Reports Hx MRSA, Reports Other - History of C. difficile colitis Psychiatric Medical History: Reports: Hx Post Traumatic Stress Disorder Denies: Hx Depression Traumatic Medical History: Reports: Hx Fractures - Right arms both ankles lumbar and left hip fracture, Hx Spine Fracture Infectious Medical History: Reports: Hx C-Diff, Hx MRSA Past Surgical History: Reports: Hx Abdominal Surgery, Hx Cholecystectomy, Hx Hysterectomy, Hx Lumpectomy, Hx Orthopedic Surgery - Right knee left hip and back. Repair of bulging disc - Immunizations Immunizations up to date: Yes Hx Diphtheria, Pertussis, Tetanus Vaccination: Yes Vertical Provider Document - CONSTITUTIONAL Agree With Documented VS: Yes Exam Limitations: No Limitations General Appearance: Mild Distress Notes: >>>> PHYSICAL_EXAM: GENERAL_APPEARANCE: well_nourished, alert, cooperative, no_acute_distress, mild_obvious_discomfort. pleasant, morbidly obese middle-aged white female, coughs constantly on exam however it is not intractable. She is not vomiting, smiling, speaking in full sentences, in no sign of pain or resp distress, adult son and daughter at bedside VITALS: reviewed, see vital signs table. HEAD: no_swelling\tenderness on the head. normocephalic. atraumatic. no aleman signs. no raccoons eyes. EYES: PERRL, EOMI, conjunctiva_clear. NOSE: no_nasal_discharge. MOUTH: (-)decreased moisture. THROAT: no_tonsilar_inflammation/exudate/hypertrophy, no thrush, no drooling, tripoding, voice change, or stridor. No oral lesions. No tongue or lip swelling, uvula midline, no_airway_obstruction. no_lymphadenopathy NECK: supple, no_neck_tenderness, (-)thyromegaly. full rom. full strength. no meningeal signs. BACK: no_back_tenderness. CHEST_WALL: no_chest_tenderness. no overlying skin changes LUNGS: Scant expiratory wheezes worse at apices, ctab (-)accessory muscle use, decreased air exchange bilateral. HEART: normal_rate, normal_rhythm, ABDOMEN: normal_BS, soft, no_abd_tenderness, (-)guarding, (-)rebound, obese abdomen, exam somewhat limited secondary to patient's body habitus, no distension or peritoneal signs. no cva ttp EXTREMITIES: strength 5/5 in all_extremities, good pulses in all_extremities, no_swelling\tenderness in the extremities, no_edema. full rom. normal gait. good pulses. brisk cap refill. good hand seismic engineer. neg quin sign NEURO: motor and sensation intact, cranial nerves 2-12 intact, cerebellar fxn intact SKIN: warm, dry, good_color, no_rash. MENTAL_STATUS: speech_clear, oriented_X_3, normal_affect, responds_appropriately to questions. - INFECTION CONTROL TRAVEL OUTSIDE OF THE [place] IN LAST 30 DAYS: No Course - Re-evaluation Re-evalutation: 12/27/18 07:31 Pt here for some shortness of breath, cough, history of metastatic cancer, here for worsening cough, shortness breath, vomiting, and wheezing over the last 2 weeks. She has multiple antibiotic allergies. She was also recently diagnosed with Lyme disease and was started on amoxicillin and azithromycin 4 days ago secondary to a known anaphylactic reaction to doxycycline. she states this is making her vomit now too. she denies any abd pain and has no abd ttp on exam. no cp. Labs were unremarkable. Blood cultures are pending. She had a low-grade fever on arrival here and has some scant expiratory wheezes with decreased lung sounds throughout with a constant cough. Chest x-ray was negative per and radiology reviewed by myself. She did receive a DuoNeb here with improvement of her symptoms. She has had no vomiting here. She is requesting to go home stating she feels much better. She can continue to take her amoxicillin, azithromycin, and she has an albuterol inhaler at home she can continue to use. We will discharge her with Phenergan with codeine cough syrup. Advised her to follow-up with her PCP for recheck in the next 1 to 2 days. Return for any wo rsening symptoms. Gave medication precautions. Push fluids. Tylenol as needed for any pain or fever. Patient understands and agrees with plan. Vital signs stable. Afebrile. Well-appearing. Satting well on room air. Neuro nonfocal. On reexam, pt improved some with tx listed. remained stable. nontoxic. Lung sounds improved on recheck. Patient feels much better would like to go home. Cough has improved and is not as frequent. The patient and her family members have requested multiple rounds of food and drink during her entire stay here. they are tolerating po. Documentation achieved through voice recording which may lead to some occasional accidental typographical errors. Extensive efforts have been made to proof read documentation to make sure these are the least as possible. Category Date Time Status CHEST 2 VIEWS [RAD] Stat Exams 12/27/18 Completed BLOOD CULTURE [MC] Stat Lab 12/27/18 06:40 Ordered CBC WITH DIFF [HEME] Stat Lab 12/27/18 06:40 Completed COMPREHENSIVE METABOLIC PANEL [CHEM] Stat Lab 12/27/18 06:40 Received LACTIC ACID SEPSIS [CHEM] Stat Lab 12/27/18 06:40 Received NT PRO BNP [CHEM] Stat Lab 12/27/18 06:40 Received PARTIAL THROMBOPLASTIN TIME [COAG] Stat Lab 12/27/18 06:40 Completed PROTHROMBIN TIME/INR [COAG] Stat Lab 12/27/18 06:40 Completed Ipratropium/Albuterol Sulfate [Duoneb 3 ml Ampul] Med 12/27/18 06:17 Discontinued 3 ml NEB NOW ONE Nebulizer Therapy Routine [RESPCARE] NOW Ther 12/27/18 06:17 Active 12/27/18 07:51 12/27/18 07:53 - Vital Signs Vital signs: Temp Pulse Resp BP Pulse Ox 99.1 F 103 H 18 129/85 H 98 12/27/18 04:00 12/27/18 04:00 12/27/18 04:00 12/27/18 04:00 12/27/18 04:00 12/27/18 07:35 Temp Pulse Resp BP Pulse Ox 12/27/18 04:00 99.1 F 103 H 18 129/85 H 98 12/27/18 07:55 Temp Pulse Resp BP Pulse Ox 12/27/18 04:00 99.1 F 103 H 18 129/85 H 98 - Laboratory Result Diagrams: 12/27/18 06:40 12/27/18 06:40 Laboratory results interpreted by me: 12/27/18 07:35 Labs- Entire Visit 12/27/18 12/27/18 12/27/18 06:40 06:40 06:40 WBC 8.2 RBC 4.84 Hgb 13.5 Hct 40.5 MCV 84 MCH 27.9 MCHC 33.3 RDW 15.1 H Plt Count 320 Lymph % (Auto) 25.1 Butts % (Auto) 11.2 Eos % (Auto) 3.4 Baso % (Auto) 1.4 Absolute Neuts (auto) 4.8 Absolute Lymphs (auto) 2.1 Absolute Monos (auto) 0.9 Absolute Eos (auto) 0.3 Absolute Basos (auto) 0.1 Seg Neutrophils % 58.9 PT 13.4 INR 1.02 APTT 34.0 Sodium 141.0 Potassium 3.8 Chloride 106 Carbon Dioxide 26 Anion Gap 9 BUN 11 Creatinine 0.80 Est GFR ( Amer) > 60 Est GFR (MDRD) Non-Af > 60 Glucose 108 Lactic Acid Calcium 9.5 Total Bilirubin 0.6 Direct Bilirubin 0.1 Neonat Total Bilirubin Not Reportable Neonat Direct Bilirubin Not Reportable Neonat Indirect Bili Not Reportable AST 44 H ALT 41 Alkaline Phosphatase 111 Total Protein 7.3 Albumin 4.0 12/27/18 06:40 WBC RBC Hgb Hct MCV MCH MCHC RDW Plt Count Lymph % (Auto) Butts % (Auto) Eos % (Auto) Baso % (Auto) Absolute Neuts (auto) Absolute Lymphs (auto) Absolute Monos (auto) Absolute Eos (auto) Absolute Basos (auto) Seg Neutrophils % PT INR APTT Sodium Potassium Chloride Carbon Dioxide Anion Gap BUN Creatinine Est GFR ( Amer) Est GFR (MDRD) Non-Af Glucose Lactic Acid 1.1 Calcium Total Bilirubin Direct Bilirubin Neonat Total Bilirubin Neonat Direct Bilirubin Neonat Indirect Bili AST ALT Alkaline Phosphatase Total Protein Albumin - Diagnostic Test Radiology reviewed: Image reviewed, Reports reviewed Radiology results interpreted by me: 12/27/18 07:35 Chest X-Ray 12/27/18 00:00 IMPRESSION: 1. No acute pulmonary process identified. Discharge - Discharge Clinical Impression: History of Lyme disease, Medication intolerance Acute bronchitis Qualifiers: Bronchitis organism: unspecified organism Qualified Code(s): J20.9 - Acute bronchitis, unspecified Nausea & vomiting Qualifiers: Vomiting type: unspecified Vomiting Intractability: non-intractable Qualified Code(s): R11.2 - Nausea with vomiting, unspecified Condition: Good Disposition: HOME, SELF-CARE Instructions: Vomiting ([facility]), Bronchitis ([facility]) Additional Instructions: Follow-up with PCP in 1 to 2 days. Return for any worsening symptoms. tylenol as needed for any pain or fever if not allergic. take the medication as prescribed. Do not work, drive, or operate machinery while taking the cough medication. Continue to use your inhaler as prescribed. Continue to take your amoxicillin and azithromycin as prescribed. Prescriptions: Phenylephrine HCl/Cod/Prometh [Phenergan Vc-Codeine Syrup] 120 ml PO ASDIR PRN #1 syrup PRN Reason: Cough Referrals: TOM AGUIRRE DO [Primary Care Provider] - Follow up tomorrow
[2018-12-27] MEDS ORDERED: IPRATROPIUM/ALBUTEROL 0.5-2.5 MG/3 ML AMPUL NEB ONE (06:17)
[2018-12-27 07:01] LABS: ABSOLUTE BASOPHILS # (AUTO) 0.1 10^3/uL (0.0-0.2); ABSOLUTE EOSINOPHILS # (AUTO) 0.3 10^3/uL (0.0-0.6); ABSOLUTE LYMPHOCYTES (AUTO) 2.1 10^3/uL (0.5-4.7); ABSOLUTE MONOCYTES (AUTO) 0.9 10^3/uL (0.1-1.4); ABSOLUTE NEUT (AUTO) 4.8 10^3/uL (1.7-8.2); BASOPHILS % (AUTO) 1.4 % (0-2); EOSINOPHILS % (AUTO) 3.4 % (0-6); HEMATOCRIT 40.5 % (36.0-47.0); HEMOGLOBIN 13.5 g/dL (12.0-15.5); LYMPHOCYTES % (AUTO) 25.1 % (13-45); MEAN CORPUSCULAR HEMOGLOBIN 27.9 pg (27.0-33.4); MEAN CORPUSCULAR HGB CONC 33.3 g/dL (32.0-36.0); MEAN CORPUSCULAR VOLUME 84 fl (80-97); MONOCYTES % (AUTO) 11.2 % (3-13); PLATELET COUNT 320 10^3/uL (150-450); RED BLOOD COUNT 4.84 10^6/uL (3.72-5.28); RED CELL DISTRIBUTION WIDTH 15.1 % (11.5-14.0); SEGMENTED NEUTROPHILS % (AUTO) 58.9 % (42-78); TOTAL CELLS COUNTED % (AUTO) 100 %; WHITE BLOOD COUNT 8.2 10^3/uL (4.0-10.5)
[2018-12-27 07:09] LABS: INTERNATIONAL RATION (INR) 1.02; PROTHROMBIN TIME 13.4 SEC (11.4-15.4)
[2018-12-27 07:21] LABS: ALKALINE PHOSPHATASE 111 U/L (38-126); ANION GAP 9 (5-19); ASPARTATE AMINO TRANSFERASE 44 U/L (14-36); BILIRUBIN,DIRECT 0.1 mg/dL (0.0-0.4); BILIRUBIN,TOTAL 0.6 mg/dL (0.2-1.3); BLOOD UREA NITROGEN 11 mg/dL (7-20); CALCIUM 9.5 mg/dL (8.4-10.2); CARBON DIOXIDE 26 mmol/L (22-30); CHLORIDE 106 mmol/L (98-107); GLUCOSE 108 mg/dL (75-110); POTASSIUM 3.8 mmol/L (3.6-5.0); TOTAL PROTEIN 7.3 g/dL (6.3-8.2)
[2018-12-27 08:24] VITALS: BP 122/56
== END 2018-12-27 08:23 | disposition home or self-care (01) ==
LOC: ER 03:55
DX: R11.2 Nausea with vomiting, unspecified (principal); T36.0X5A Adverse effect of penicillins, initial encounter; T36.3X5A Adverse effect of macrolides, initial encounter; J20.9 Acute bronchitis, unspecified; A69.20 Lyme disease, unspecified; R05 Cough; R06.02 Shortness of breath; R06.2 Wheezing; R50.9 Fever, unspecified; R07.1 Chest pain on breathing; E66.01 Morbid (severe) obesity due to excess calories; Z87.892 Personal history of anaphylaxis; Z88.1 Allergy status to other antibiotic agents
CPT/HCPCS: 36415; 87040; 85025; 85610; 85730; 80053; 83605; 83880; 71046; J7620

== ENCOUNTER 2019-01-01 21:00 | Emergency (ER) | payer MEDICAID ==
--- NOTE | 2019-01-01 21:25 | ER Document Report ---
ED Medical Screen (RME) - General Chief Complaint: Shortness Of Breath Stated Complaint: THROAT HURTS/COUGH/SHORTNESS OF BREATH Time Seen by Provider: 01/01/19 21:18 Primary Care Provider: TOM AGUIRRE DO [Primary Care Provider] - Follow up as needed Mode of Arrival: Ambulatory Information source: Patient Notes: Patient presents emergency department with cough sore throat for over a week. She was evaluated and treated with antibiotics and cough medicine on December 27 here in the emergency department. Patient reports they advised her to be admitted but she did want to be admitted. She has not been evaluated by her primary care. She reports she does not have an appointment until January 17. Patient coughing frequently. I have greeted and performed a rapid initial assessment of this patient. A comprehensive ED assessment and evaluation of the patient, analysis of test results and completion of the medical decision making process will be conducted by additional ED providers. Dictation of this chart was performed using voice recognition software; therefore, there may be some unintended grammatical errors. TRAVEL OUTSIDE OF THE [place] IN LAST 30 DAYS: No - Related Data Allergies/Adverse Reactions: sulfamethoxazole [From Bactrim] Allergy (Severe, Verified 10/19/18 18:14) Respiratory distress trimethoprim [From Bactrim] Allergy (Severe, Verified 10/19/18 18:14) Respiratory distress clindamycin [Clindamycin] Allergy (Unknown, Verified 10/19/18 18:14) Respiratory distress doxycycline [Doxycycline] Allergy (Unknown, Verified 10/19/18 18:14) Respiratory distress Penicillins Allergy (Unknown, Verified 10/19/18 18:14) Respiratory distress Coconut * [Coconut] Allergy (Verified 10/19/18 18:14) Hives diphenhydramine [From Benadryl] Allergy (Verified 10/19/18 18:14) ibuprofen [From Advil] Allergy (Verified 10/19/18 18:14) Past Medical History - Past Medical History Cardiac Medical History: Reports: Hx DVT Denies: Hx Atrial Fibrillation, Hx Congestive Heart Failure, Hx Coronary Artery Disease, Hx Hypertension Pulmonary Medical History: Denies: Hx Asthma, Hx Bronchitis, Hx COPD, Hx Pneumonia Neurological Medical History: Reports: 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, Hx Seizures - childhood seizures Endocrine Medical History: Denies: Hx Diabetes Mellitus Type 1, Hx Diabetes Mellitus Type 2 Renal/ Medical History: Denies: Hx Kidney Stones, Hx Peritoneal Dialysis Malignancy Medical History: Reports: Hx Breast Cancer, Hx Colorectal Cancer, Hx Liver Cancer, Hx Lung Cancer GI Medical History: Reports: Hx Gastritis, Hx Gastroesophageal Reflux Disease, Hx Ulcer, Hx Colonoscopy, Hx Endoscopy Musculoskeltal Medical History: Reports Hx Arthritis - Rheumatoid arthritis, Reports Hx Musculoskeletal Deformity, Reports Hx Musculoskeletal Trauma Skin Medical History: Reports Hx Cellulitis, Reports Hx MRSA Psychiatric Medical History: Reports: Hx Post Traumatic Stress Disorder Denies: Hx Depression Traumatic Medical History: Reports: Hx Fractures - Right arms both ankles lumbar and left hip fracture, Hx Spine Fracture Infectious Medical History: Reports: Hx C-Diff, Hx MRSA Past Surgical History: Reports: Hx Abdominal Surgery, Hx Cholecystectomy, Hx Hysterectomy, Hx Lumpectomy, Hx Orthopedic Surgery - Right knee left hip and back. Repair of bulging disc - Immunizations Immunizations up to date: Yes Hx Diphtheria, Pertussis, Tetanus Vaccination: Yes Doctor's Discharge - Discharge Referrals: TOM AGUIRRE DO [Primary Care Provider] - Follow up as needed
--- NOTE | 2019-01-01 21:55 | RADIOLOGY REPORT (SQ) ---
EXAM DESCRIPTION: [facility]: XR CHEST 2 VIEWS Views: 2 CLINICAL HISTORY: 53 years Female, cough COMPARISON: 12/27/2018 FINDINGS: The lungs are clear. No pneumothorax or significant pleural effusion. Cardiomediastinal silhouette is within normal limits. Bony structures are unremarkable for age. IMPRESSION: 1. No acute cardiothoracic abnormality.
[2019-01-01 22:22] LABS: ABSOLUTE EOSINOPHILS # (AUTO) 0.2 10^3/uL (0.0-0.6); ABSOLUTE LYMPHOCYTES (AUTO) 2.3 10^3/uL (0.5-4.7); ABSOLUTE MONOCYTES (AUTO) 0.7 10^3/uL (0.1-1.4); BASOPHILS % (AUTO) 0.5 % (0-2); EOSINOPHILS % (AUTO) 1.7 % (0-6); HEMATOCRIT 39.1 % (36.0-47.0); HEMOGLOBIN 13.2 g/dL (12.0-15.5); LYMPHOCYTES % (AUTO) 22.9 % (13-45); MEAN CORPUSCULAR HEMOGLOBIN 28.3 pg (27.0-33.4); MEAN CORPUSCULAR HGB CONC 33.8 g/dL (32.0-36.0); MEAN CORPUSCULAR VOLUME 84 fl (80-97); MONOCYTES % (AUTO) 6.9 % (3-13); PLATELET COUNT 353 10^3/uL (150-450); RED BLOOD COUNT 4.67 10^6/uL (3.72-5.28); RED CELL DISTRIBUTION WIDTH 14.5 % (11.5-14.0); TOTAL CELLS COUNTED % (AUTO) 100 %; WHITE BLOOD COUNT 10.3 10^3/uL (4.0-10.5)
[2019-01-01 22:37] LABS: APPEARANCE,URINE SLIGHTLY-CLOUDY; BILIRUBIN,URINE NEGATIVE (NEGATIVE); COLOR,URINE YELLOW; GLUCOSE, URINE NEGATIVE (NEGATIVE); KETONES,URINE NEGATIVE (NEGATIVE); LEUKOCYTE ESTERASE,URINE SMALL (NEGATIVE); NITRITE,URINE NEGATIVE (NEGATIVE); PROTEIN,URINE NEGATIVE (NEGATIVE); UROBILINOGEN,URINE NEGATIVE mg/dL (<2.0)
[2019-01-01 22:39] LABS: ALBUMIN 3.9 g/dL (3.5-5.0); ALKALINE PHOSPHATASE 93 U/L (38-126); ANION GAP 10 (5-19); ASPARTATE AMINO TRANSFERASE 30 U/L (14-36); BILIRUBIN,DIRECT 0.2 mg/dL (0.0-0.4); BILIRUBIN,TOTAL 0.7 mg/dL (0.2-1.3); BLOOD UREA NITROGEN 11 mg/dL (7-20); CALCIUM 9.8 mg/dL (8.4-10.2); CARBON DIOXIDE 28 mmol/L (22-30); CHLORIDE 106 mmol/L (98-107); GLUCOSE 104 mg/dL (75-110); POTASSIUM 4.5 mmol/L (3.6-5.0); TOTAL PROTEIN 6.9 g/dL (6.3-8.2)
--- NOTE | 2019-01-02 00:33 | ER Document Report ---
ED General - General Chief Complaint: Shortness Of Breath Stated Complaint: THROAT HURTS/COUGH/SHORTNESS OF BREATH Time Seen by Provider: 01/01/19 21:18 Primary Care Provider: TOM AGUIRRE DO [Primary Care Provider] - Follow up in 3-5 days Mode of Arrival: Ambulatory TRAVEL OUTSIDE OF THE [place] IN LAST 30 DAYS: No - HPI Notes: 53-year-old female frequent visitor to the emergency department who presents with persistent cough. Patient states she has had a cough for several weeks, does not smoke cigarettes. She was seen here several days ago started on antibiotics but states she is not getting better. Largely nonproductive but sometimes productive of clear sputum. Slightly short of breath with this. Does not smoke. No active wheezing. No fever, chills or sweats. No associated chest pain. No other modifying factors, no other associated symptoms, no other provocative or palliative factors. - Related Data Allergies/Adverse Reactions: sulfamethoxazole [From Bactrim] Allergy (Severe, Verified 10/19/18 18:14) Respiratory distress trimethoprim [From Bactrim] Allergy (Severe, Verified 10/19/18 18:14) Respiratory distress clindamycin [Clindamycin] Allergy (Unknown, Verified 10/19/18 18:14) Respiratory distress doxycycline [Doxycycline] Allergy (Unknown, Verified 10/19/18 18:14) Respiratory distress Penicillins Allergy (Unknown, Verified 10/19/18 18:14) Respiratory distress Coconut * [Coconut] Allergy (Verified 10/19/18 18:14) Hives diphenhydramine [From Benadryl] Allergy (Verified 10/19/18 18:14) ibuprofen [From Advil] Allergy (Verified 10/19/18 18:14) Past Medical History - General Information source: Patient - Social History Smoking Status: Never Smoker Family History: Arthritis, CAD, CVA, DM, Hyperlipidemia, Hypertension, Malignancy, Thyroid Disfunction Patient has suicidal ideation: No Patient has homicidal ideation: No - Past Medical History Cardiac Medical History: Reports: Hx DVT Denies: Hx Atrial Fibrillation, Hx Congestive Heart Failure, Hx Coronary Artery Disease, Hx Hypertension Pulmonary Medical History: Denies: Hx Asthma, Hx Bronchitis, Hx COPD, Hx Pneumonia Neurological Medical History: Reports: 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, Hx Seizures - childhood seizures Endocrine Medical History: Denies: Hx Diabetes Mellitus Type 1, Hx Diabetes Mellitus Type 2 Renal/ Medical History: Denies: Hx Kidney Stones, Hx Peritoneal Dialysis Malignancy Medical History: Reports: Hx Breast Cancer, Hx Colorectal Cancer, Hx Liver Cancer, Hx Lung Cancer GI Medical History: Reports: Hx Gastritis, Hx Gastroesophageal Reflux Disease, Hx Ulcer, Hx Colonoscopy, Hx Endoscopy Musculoskeletal Medical History: Reports Hx Arthritis - Rheumatoid arthritis, Reports Hx Musculoskeletal Deformity, Reports Hx Musculoskeletal Trauma Skin Medical History: Reports Hx Cellulitis, Reports Hx MRSA Psychiatric Medical History: Reports: Hx Post Traumatic Stress Disorder Denies: Hx Depression Traumatic Medical History: Reports: Hx Fractures - Right arms both ankles lumbar and left hip fracture, Hx Spine Fracture Infectious Medical History: Reports: Hx C-Diff, Hx MRSA Past Surgical History: Reports: Hx Abdominal Surgery, Hx Cholecystectomy, Hx Hysterectomy, Hx Lumpectomy, Hx Orthopedic Surgery - Right knee left hip and b ack. Repair of bulging disc - Immunizations Immunizations up to date: Yes Hx Diphtheria, Pertussis, Tetanus Vaccination: Yes Review of Systems - Review of Systems Notes: Review of systems as in the history of present illness, otherwise negative x 10 systems. Physical Exam - Vital signs Vitals: Temp Pulse Resp BP Pulse Ox 98.4 F 84 22 H 136/100 H 100 01/01/19 21:23 01/01/19 21:23 01/01/19 21:23 01/01/19 21:23 01/01/19 21:23 - Notes Notes: General: Well developed . HEENT: Normocephalic, atraumatic. Pupils equal round reactive to light. No JVD. Chest: No trauma. Respiratory: Good air exchange, normal excursion. Cardiac: Regular rhythm. No murmurs or gallops. Abdomen: Soft, benign. Nondistended. Nontender. Back: No asymmetry or gross abnormality. Motor: Grossly normal power and tone. Neurologic: Alert, nonfocal. Cranial nerves II-12 are intact. Sensation intact. Vascular: Well perfused. Normal peripheral pulses. Skin: No petechiae or purpura. Course - Re-evaluation Re-evalutation: 01/02/19 00:35 This is a well-appearing female with normal oxygen saturation, no tachypnea, normal pulmonary exam. Likely persistent bronchitis, no indication for antibi otics. She was seen by physician in triage, available labs this time show normal CBC, chemistries and UA. Chest x-ray shows no evidence of infiltrate or pneumonia. Patient is asked to have her blood pressure rechecked in 24 to 48 hours, follow with her primary care doctor. 01/02/19 00:35 - Vital Signs Vital signs: Temp Pulse Resp BP Pulse Ox 98.4 F 84 22 H 136/100 H 100 01/01/19 21:23 01/01/19 21:23 01/01/19 21:23 01/01/19 21:23 01/01/19 21:23 - Laboratory Result Diagrams: 01/01/19 22:05 01/01/19 22:05 Laboratory results interpreted by me: 01/01/19 01/01/19 22:05 22:05 RDW 14.5 H Ur Leukocyte Esterase SMALL H Discharge - Discharge Clinical Impression: Bronchitis Condition: Good Disposition: HOME, SELF-CARE Instructions: Bronchitis ([facility]) Referrals: TOM AGUIRRE DO [Primary Care Provider] - Follow up in 3-5 days
[2019-01-02 00:47] VITALS: BP 141/90
== END 2019-01-02 00:48 | disposition home or self-care (01) ==
LOC: ER 21:00
DX: J40 Bronchitis, not specified as acute or chronic (principal); R05 Cough; R06.02 Shortness of breath; Z88.1 Allergy status to other antibiotic agents; Z88.0 Allergy status to penicillin; Z91.018 Allergy to other foods; Z88.8 Allergy status to other drugs, medicaments and biological substances
CPT/HCPCS: 36415; 71046; 80053; 81001; 85025; 99285

== ENCOUNTER 2019-01-24 19:44 | Emergency (ER) | payer MEDICAID ==
[2019-01-24 20:11] VITALS: BP 147/107
== END 2019-01-24 20:50 | disposition left against medical advice (07) ==
LOC: ER 19:44
DX: Z53.21 Procedure and treatment not carried out due to patient leaving prior to being seen by health care provider (principal)

== ENCOUNTER 2019-01-24 21:31 | Emergency (ER) | payer MEDICAID ==
--- NOTE | 2019-01-24 22:40 | ER Document Report ---
ED Medical Screen (RME) - General Chief Complaint: Fall Stated Complaint: FALL,SWOLLEN FACE Time Seen by Provider: 01/24/19 22:37 Primary Care Provider: TOM AGUIRRE DO [Primary Care Provider] - Follow up as needed Mode of Arrival: Ambulatory Information source: Patient Notes: 53-year-old female presents to ED for pain and swelling to the left side of her face. She states she fell hitting the counter with the left side of her face yesterday. She states she did not noticed the swelling until this morning. She states today it has swollen throughout the day. There is redness to the left side with some bruising around the left eye and wants to the left cheek. Patient is alert oriented respirations regular and unlabored speaking in full sentences walks with a even steady gait. I have greeted and performed a rapid initial assessment of this patient. A comprehensive ED assessment and evaluation of the patient, analysis of test results and completion of medical decision making process will be conducted by an additional ED providers. TRAVEL OUTSIDE OF THE [place] IN LAST 30 DAYS: No - Related Data Allergies/Adverse Reactions: sulfamethoxazole [From Bactrim] Allergy (Severe, Verified 10/19/18 18:14) Respiratory distress trimethoprim [From Bactrim] Allergy (Severe, Verified 10/19/18 18:14) Respiratory distress clindamycin [Clindamycin] Allergy (Unknown, Verified 10/19/18 18:14) Respiratory distress doxycycline [Doxycycline] Allergy (Unknown, Verified 10/19/18 18:14) Respiratory distress Penicillins Allergy (Unknown, Verified 10/19/18 18:14) Respiratory distress Coconut * [Coconut] Allergy (Verified 10/19/18 18:14) Hives diphenhydramine [From Benadryl] Allergy (Verified 10/19/18 18:14) ibuprofen [From Advil] Allergy (Verified 10/19/18 18:14) Past Medical History - Past Medical History Cardiac Medical History: Reports: Hx DVT Denies: Hx Atrial Fibrillation, Hx Congestive Heart Failure, Hx Coronary Artery Disease, Hx Hypertension Pulmonary Medical History: Denies: Hx Asthma, Hx Bronchitis, Hx COPD, Hx Pneumonia Neurological Medical History: Reports: 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, Hx Seizures - childhood seizures Endocrine Medical History: Denies: Hx Diabetes Mellitus Type 1, Hx Diabetes Mellitus Type 2 Renal/ Medical History: Denies: Hx Kidney Stones, Hx Peritoneal Dialysis Malignancy Medical History: Reports: Hx Breast Cancer, Hx Colorectal Cancer, Hx Liver Cancer, Hx Lung Cancer GI Medical History: Reports: Hx Gastritis, Hx Gastroesophageal Reflux Disease, Hx Ulcer, Hx Colonoscopy, Hx Endoscopy Musculoskeltal Medical History: Reports Hx Arthritis - Rheumatoid arthritis, Reports Hx Musculoskeletal Deformity, Reports Hx Musculoskeletal Trauma Skin Medical History: Reports Hx Cellulitis, Reports Hx MRSA Psychiatric Medical History: Reports: Hx Post Traumatic Stress Disorder Denies: Hx Depression Traumatic Medical History: Reports: Hx Fractures - Right arms both ankles lumbar and left hip fracture, Hx Spine Fracture Infectious Medical History: Reports: Hx C-Diff, Hx MRSA Past Surgical History: Reports: Hx Abdominal Surgery, Hx Cholecystectomy, Hx Hysterectomy, Hx Lumpectomy, Hx Orthopedic Surgery - Right knee left hip and back. Repair of bulging disc - Immunizations Immunizations up to date: Yes Hx Diphtheria, Pertussis, Tetanus Vaccination: Yes Physical Exam - Vital signs Vitals: Temp Pulse Resp BP Pulse Ox 98.8 F 95 16 119/66 98 01/24/19 22:18 01/24/19 22:18 01/24/19 22:18 01/24/19 22:18 01/24/19 22:18 Course - Vital Signs Vital signs: Temp Pulse Resp BP Pulse Ox 98.8 F 95 16 119/66 98 01/24/19 22:18 01/24/19 22:18 01/24/19 22:18 01/24/19 22:18 01/24/19 22:18 Doctor's Discharge - Discharge Referrals: TOM AGUIRRE DO [Primary Care Provider] - Follow up as needed
--- NOTE | 2019-01-24 23:17 | RADIOLOGY REPORT (SQ) ---
EXAM DESCRIPTION: XR FACIAL BONES 1-2 VIEWS COMPLETED DATE/TME: 01/24/2019 22:41 CLINICAL HISTORY: 53 years, Female, fall pain and swelling COMPARISON: None. NUMBER OF VIEWS: 3 TECHNIQUE: 3 views of the facial bones LIMITATIONS: None. FINDINGS: The paranasal sinuses appear well aerated as do the mastoid air cells. No radiographic evidence for acute facial bone fracture. Soft tissues appear unremarkable IMPRESSION: Negative exam copyright 2010 [employer]- All Rights Reserved
[2019-01-25] MEDS ORDERED: KETOROLAC TROMETHAMINE 60 MG/2 ML SDV IM ONE (03:29)
--- NOTE | 2019-01-25 03:30 | ER Document Report ---
HPI - HPI Time Seen by Provider: 01/24/19 22:37 Pain Level: 4 Context: Patient is a 53-year-old female who presents the emergency department after a fall. She fell yesterday and hit the left side of her face on the counter. She ended up going to sleep and noticed some swelling this morning. She states that she has been icing it, but continues to have pain and swelling. - CONSTITUTIONAL Constitutional: DENIES: Fever, Chills - NEURO Neurology: DENIES: Headache, Weakness, Vision blurred, Dizzinesss / Vertigo - CARDIOVASCULAR Cardiovascular: DENIES: Chest pain - RESPIRATORY Respiratory: DENIES: Trouble Breathing, Coughing - GASTROINTESTINAL Gastrointestinal: DENIES: Abdominal Pain, Nausea, Patient vomiting - REPRODUCTIVE LMP: 01/08/2019 Reproductive: DENIES: : - MUSCULOSKELETAL Musculoskeletal: REPORTS: Swelling - Left cheek. DENIES: Extremity pain - DERM Skin Color: Normal Skin Problems: None Past Medical History - General Information source: Patient - Social History Smoking Status: Never Smoker Chew tobacco use (# tins/day): No Frequency of alcohol use: None Drug Abuse: None Family History: Arthritis, CAD, CVA, DM, Hyperlipidemia, Hypertension, Malignancy, Thyroid Disfunction Patient has suicidal ideation: No Patient has homicidal ideation: No - Past Medical History Cardiac Medical History: Reports: Hx DVT Denies: Hx Atrial Fibrillation, Hx Congestive Heart Failure, Hx Coronary A rtery Disease, Hx Hypertension Pulmonary Medical History: Denies: Hx Asthma, Hx Bronchitis, Hx COPD, Hx Pneumonia Neurological Medical History: Reports: 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, Hx Seizures - childhood seizures Endocrine Medical History: Denies: Hx Diabetes Mellitus Type 1, Hx Diabetes Mellitus Type 2 Renal/ Medical History: Denies: Hx Kidney Stones, Hx Peritoneal Dialysis Malignancy Medical History: Reports: Hx Breast Cancer, Hx Colorectal Cancer, Hx Liver Cancer, Hx Lung Cancer GI Medical History: Reports: Hx Gastritis, Hx Gastroesophageal Reflux Disease, Hx Ulcer, Hx Colonoscopy, Hx Endoscopy Musculoskeletal Medical History: Reports Hx Arthritis - Rheumatoid arthritis, Reports Hx Musculoskeletal Deformity, Reports Hx Musculoskeletal Trauma Skin Medical History: Reports Hx Cellulitis, Reports Hx MRSA Psychiatric Medical History: Reports: Hx Post Traumatic Stress Disorder Denies: Hx Depression Traumatic Medical History: Reports: Hx Fractures - Right arms both ankles lumbar and left hip fracture, Hx Spine Fracture Infectious Medical History: Reports: Hx C-Diff, Hx MRSA Past Surgical History: Reports: Hx Abdominal Surgery, Hx Cholecystectomy, Hx Hysterectomy, Hx Lumpectomy, Hx Orthopedic Surgery - Right knee left hip and back. Repair of bulging disc - Immunizations Immunizations up to date: Yes Hx Diphtheria, Pertussis, Tetanus Vaccination: Yes Vertical Provider Document - CONSTITUTIONAL Agree With Documented VS: Yes Exam Limitations: No Limitations General Appearance: No Apparent Distress - INFECTION CONTROL TRAVEL OUTSIDE OF THE [place] IN LAST 30 DAYS: No - HEENT HEENT: Normocephalic, PERRLA. negative: Atraumatic - Edema noted to left zygomatic area - NECK Neck: Normal Inspection - RESPIRATORY Respiratory: No Respiratory Distress - CARDIOVASCULAR Cardiovascular: Regular Rate, Regular Rhythm Pulses: Normal: Radial - MUSCULOSKELETAL/EXTREMETIES Musculoskeletal/Extremeties: FROM, Tender - Left zygomatic area, Edema - Left zygomatic area. negative: Eccymosis - NEURO Level of Consciousness: Awake, Alert, Appropriate Motor/Sensory: No Motor Deficit - DERM Integumentary: Warm, Dry Course - Re-evaluation Re-evalutation: 01/25/19 CT of facial bones ordered in triage is negative for any acute fractures. Patient will receive a dose of Toradol here in the emergency department. I have advised her to continue to ice her left cheek as needed to help with swelling. She is in agreement with this plan. I have a very low suspicion for any life- threatening etiology at this time. Follow-up precautions were given. Verbal discharge instructions were given to the patient. They verbalized understanding. They are stable for discharge. - Vital Signs Vital signs: Temp Pulse Resp BP Pulse Ox 98.8 F 95 16 119/66 98 01/24/19 22:18 01/24/19 22:18 01/24/19 22:18 01/24/19 22:18 01/24/19 22:18 Discharge - Discharge Clinical Impression: Fall Qualifiers: Encounter type: initial encounter Qualified Code(s): W19.XXXA - Unspecified fall, initial encounter Contusion of face Qualifiers: Encounter type: initial encounter Qualified Code(s): S00.83XA - Contusion of other part of head, initial encounter Condition: Stable Disposition: HOME, SELF-CARE Additional Instructions: You were seen today in the emergency department after a fall. Your CT was normal. Please follow-up with your primary care provider as needed. You were also given Toradol, a medication for pain. Continue to apply ice as needed. Referrals: TOM AGUIRRE, DO [Primary Care Provider] - Follow up as needed
[2019-01-25 04:09] VITALS: BP 122/68
== END 2019-01-25 03:38 | disposition home or self-care (01) ==
LOC: ER 21:31
DX: Z53.21 Procedure and treatment not carried out due to patient leaving prior to being seen by health care provider (principal); R22.0 Localized swelling, mass and lump, head
CPT/HCPCS: 70150; J1885

== ENCOUNTER → 2019-02-13 | Outpatient (CLI) | payer MEDICAID ==
--- NOTE | 2019-02-13 09:14 | RADIOLOGY REPORT (SQ) ---
EXAM DESCRIPTION: CT ABD/PELVIS WITH IV ORAL COMPLETED DATE/TIME: 02/13/2019 8:48 am REASON FOR STUDY: CUTANEOUS ABSCESS (L02.211) L02.211 CUTANEOUS ABSCESS OF ABDOMINAL WALL E04.1 NO NTOXIC SINGLE THYROID NODULE COMPARISON: 10/29/2017 TECHNIQUE: CT scan of the abdomen and pelvis performed using helical scanning technique with dynamic intravenous contrast injection. No oral contrast. Images reviewed with lung, soft tissue, and bone windows. Reconstructed coronal and sagittal MPR images reviewed. Delayed images for evaluation of the urinary system also acquired. All images stored on PACS. All CT scanners at this facility use dose modulation, iterative reconstruction, and/or weight based d osing when appropriate to reduce radiation dose to as low as reasonably achievable (ALARA). [facility]: Dose Right [facility]: CareDose [facility]: Dose Right [facility]: Teradose 4D [facility]: SkyGiraffe CONTRAST TYPE AND DOSE: contrast/concentration: Isovue 350.00 mg/ml; Total Contrast Delivered: 100.0 ml; Total Saline Delivered: 72.0 ml RENAL FUNCTION: 0.9 RADIATION DOSE: CT Rad equipment meets quality standard of care and radiation dose reduction techniq ues were employed. CTDIvol: 26.5 - 37.1 mGy. DLP: 3652 mGy-cm.. LIMITATIONS: None. FINDINGS: LOWER CHEST: No significant findings. No nodules or infiltrates. LIVER: There is fatty infiltration of the liver. No focal masses. SPLEEN: Normal size. No focal lesions. PANCREAS: No masses. No significant calcifications. No adjacent inflammation or peripancreatic fluid collections. Pancreatic duct not dilated. GALLBLADDER: Surgically absent. ADRENAL GLANDS: No significant masses or asymmetry. RIGHT KIDNEY AND URETER: No solid masses. Small right renal cyst. No significant calcifications. No hydronephrosis or hydroureter. LEFT KIDNEY AND URETER: No solid masses. No significant calcifications. No hydronephrosis or hydr oureter. AORTA AND VESSELS: No aneurysm. No dissection. Renal arteries, SMA, celiac without stenosis. RETROPERITONEUM: No retroperitoneal adenopathy, hemorrhage or masses. BOWEL AND PERITONEAL CAVITY: No masses or inflammatory changes. No free fluid or peritoneal masses. APPENDIX: Normal. PELVIS: No mass. No free fluid. Normal bladder. ABDOMINAL WALL: Mild soft tissue attenuation in the anterior abdominal wall in the midline just below the level of the umbilicus. No focal fluid collection. BONES: No significant or acute findings. OTHER: No other significant finding. IMPRESSION: 1. Fatty infiltration of the liver. 2. Mild inflammation the nerve soft tissue attenuation in the anterior abdominal wall just below the level emboli kiss. No focal fluid collection or abscess. TECHNICAL DOCUMENTATION: JOB ID: [id number] Quality ID # [id number]: Final reports with documentation of one or more dose reduction techniques (e.g., Au tomated exposure control, adjustment of the mA and/or kV according to patient size, use of iterative reconstruction technique) 2010 [employer]- All Rights Reserved Reading location - IP/workstation name: [email or web address]
--- NOTE | 2019-02-13 09:49 | RADIOLOGY REPORT (SQ) ---
EXAM DESCRIPTION: U/S THYROID/SFT TISS HD NECK COMPLETED DATE/TIME: 02/13/2019 9:13 am REASON FOR STUDY: NONTOXIC SINGLE THYROID NODULE (E04.1) L02.211 CUTANEOUS ABSCESS OF ABDOMINAL WAL L E04.1 NONTOXIC SINGLE THYROID NODULE COMPARISON: None. TECHNIQUE: Dynamic and static ray-scale images acquired of the thyroid gland. Selected additional c olor/power Doppler images recorded. All images stored to PACS. LIMITATIONS: None. FINDINGS: RIGHT LOBE: Normal size. Homogeneous echotexture. There are 2 right-sided thyroid nodule s. The largest measures 1.1 x 0.7 x 0.6 cm. It is solid with a smooth margin. No calcifications. It is wider than tall. The 2nd nodule measures 8 x 6 x 6 mm. It is well-marginated. It is isoechoi c it is wider than tall. No calcifications. LEFT LOBE: Normal size. Homogeneous echotexture. Complex 1.9 x 1.2 x 1.2 cm cystic structure with d ebris. ISTHMUS: Normal size. Homogeneous echotexture. No cystic or solid masses. OTHER: No other significant finding. IMPRESSION: 1. 1.1 x 0.7 x 0.6 cm solid nodule in the right lobe of the thyroid gland. This corres ponds to a TR 3 lesion. No additional follow-up is warranted based on size 2. 8 x 6 x 6 mm solid nodule in the right lobe of the thyroid gland. This corresponds to a TR 3 les ion as well. No additional follow-up is warranted based on size. 3. Complex 1.9 x 1.2 x 1.2 cm cystic lesion in the left lobe of the thyroid gland. This corresponds to a TR 1 lesion. No additional follow-up is warranted. TECHNICAL DOCUMENTATION: JOB ID: [id number] [employer]- All Rights Reserved Reading location - IP/workstation name: [email or web address]
== END ==
LOC: RAD 08:19
PROVIDERS: ATTEND Surgery
DX: L02.211 Cutaneous abscess of abdominal wall (principal); E04.1 Nontoxic single thyroid nodule
CPT/HCPCS: 74177; 76536; 82565

== ENCOUNTER → 2019-04-04 | Outpatient (CLI) | payer MEDICAID ==
--- NOTE | 2019-04-04 12:35 | RADIOLOGY REPORT (SQ) ---
EXAM DESCRIPTION: CHEST 2 VIEWS COMPLETED DATE/TIME: 04/04/2019 12:20 pm REASON FOR STUDY: R05 COUGH COMPARISON: 01/01/2019 EXAM PARAMETERS: NUMBER OF VIEWS: two views TECHNIQUE: Digital Frontal and Lateral radiographic views of the chest acquired. RADIATION DOSE: NA LIMITATIONS: none FINDINGS: LUNGS AND PLEURA: No opacities, masses or pneumothorax. No pleural effusion. MEDIASTINUM AND HILAR STRUCTURES: No masses or contour abnormalities. HEART AND VASCULAR STRUCTURES: Enlarged, stable. BONES: No acute findings. HARDWARE: Prior cholecystectomy. OTHER: No other significant finding. IMPRESSION: No evidence of acute cardiopulmonary process. TECHNICAL DOCUMENTATION: JOB ID: [id number] [employer]- All Rights Reserved Reading location - IP/workstation name: [email or web address]
== END ==
LOC: RAD 12:02
PROVIDERS: ATTEND Nurse Practitioner Family
DX: R05 Cough (principal)
CPT/HCPCS: 71046

== ENCOUNTER 2019-05-24 18:11 | Emergency (ER) | payer MEDICAID | END 2019-05-24 19:05 | disposition left against medical advice (07) | LOC: ER 18:11 | DX: Z53.21 Procedure and treatment not carried out due to patient leaving prior to being seen by health care provider (principal) ==

== ENCOUNTER 2019-08-06 19:39 | Emergency (ER) | payer MEDICAID ==
[2019-08-06 19:50] VITALS: BP 140/107
[2019-08-06] MEDS ORDERED: OXYCODONE-ACETAMINOPHEN 5-325 MG TABLET PO ONE (22:35)
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
== END 2019-08-06 23:42 | disposition home or self-care (01) ==
LOC: ER 19:39
DX: T21.22XD Burn of second degree of abdominal wall, subsequent encounter (principal); X10.2XXD Contact with fats and cooking oils, subsequent encounter; Z88.2 Allergy status to sulfonamides; Z88.1 Allergy status to other antibiotic agents; Z88.8 Allergy status to other drugs, medicaments and biological substances; E66.01 Morbid (severe) obesity due to excess calories
CPT/HCPCS: 99282

== ENCOUNTER 2019-09-06 13:16 | Emergency (ER) | payer MEDICAID ==
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
[2019-09-06 13:40] LABS: ABSOLUTE LYMPHOCYTES (AUTO) 2.2 10^3/uL (0.5-4.7); ABSOLUTE MONOCYTES (AUTO) 0.6 10^3/uL (0.1-1.4); ABSOLUTE NEUT (AUTO) 4.7 10^3/uL (1.7-8.2); BASOPHILS % (AUTO) 0.5 % (0-2); EOSINOPHILS % (AUTO) 0.1 % (0-6); HEMATOCRIT 39.4 % (36.0-47.0); HEMOGLOBIN 13.5 g/dL (12.0-15.5); LYMPHOCYTES % (AUTO) 29.1 % (13-45); MEAN CORPUSCULAR HEMOGLOBIN 28.7 pg (27.0-33.4); MEAN CORPUSCULAR HGB CONC 34.2 g/dL (32.0-36.0); MEAN CORPUSCULAR VOLUME 84 fl (80-97); MONOCYTES % (AUTO) 7.7 % (3-13); PLATELET COUNT 302 10^3/uL (150-450); RED BLOOD COUNT 4.69 10^6/uL (3.72-5.28); RED CELL DISTRIBUTION WIDTH 13.5 % (11.5-14.0); SEGMENTED NEUTROPHILS % (AUTO) 62.6 % (42-78); TOTAL CELLS COUNTED % (AUTO) 100 %; WHITE BLOOD COUNT 7.5 10^3/uL (4.0-10.5)
[2019-09-06 13:57] LABS: ALBUMIN 3.9 g/dL (3.5-5.0); ALKALINE PHOSPHATASE 108 U/L (38-126); ANION GAP 7 (5-19); ASPARTATE AMINO TRANSFERASE 36 U/L (14-36); BILIRUBIN,TOTAL 0.6 mg/dL (0.2-1.3); BLOOD UREA NITROGEN 11 mg/dL (7-20); CARBON DIOXIDE 27 mmol/L (22-30); CHLORIDE 104 mmol/L (98-107); GLUCOSE 131 mg/dL (75-110); TOTAL PROTEIN 7.3 g/dL (6.3-8.2)
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
[2019-09-06] MEDS ORDERED: METHOCARBAMOL 750 MG TABLET PO ONE (14:40)
[2019-09-06] MEDS ORDERED: HYDROCODONE/ACETAMINOPHEN 5-325 MG TABLET PO ONE (15:17)
[2019-09-06] MEDS ORDERED: LIDOCAINE 5% (700 MG) TRANSDERMAL ADH..PATCH TP ONE (16:06)
[2019-09-06 16:07] VITALS: BP 154/109
== END 2019-09-06 16:20 | disposition home or self-care (01) ==
LOC: ER 13:16
DX: S73.111A Iliofemoral ligament sprain of right hip, initial encounter (principal); M54.2 Cervicalgia; M54.9 Dorsalgia, unspecified; M25.551 Pain in right hip; V89.2XXA Person injured in unspecified motor-vehicle accident, traffic, initial encounter; Z88.2 Allergy status to sulfonamides; Z88.8 Allergy status to other drugs, medicaments and biological substances; Z88.1 Allergy status to other antibiotic agents; Z88.0 Allergy status to penicillin; Z86.718 Personal history of other venous thrombosis and embolism
CPT/HCPCS: 99284; 36415; 85025; 80053; 72040; 71046; 73552; 73502; 72110; 72070; J3490 ×2